=== PATIENT | male | born 1980 | race Two or more races ===

== ENCOUNTER 2019-11-05 06:25 | Emergency (ER) | payer OTHER ==
[~2019-11-05] VITALS: Ht 162.6 cm; Wt 81.8 kg
[2019-11-05 07:35] VITALS: BP 142/79
[2019-11-05] MEDS ORDERED: ALBU8HFA IH (11:45)
[2019-11-05] MEDS ORDERED: OMEP20 PO (11:45)
[2019-11-05] MEDS ORDERED: FLUT16H NASAL (11:45)
[2019-11-05] MEDS ORDERED: PRED10 PO (11:45)
[2019-11-05] MEDS ORDERED: MONT10TA21 PO (11:45)
[2019-11-05] MEDS ORDERED: BECL10.62 IH (11:45)
== END 2019-11-05 07:45 | disposition home or self-care (01) ==
LOC: EMS 06:25
DX: R05 Cough (principal); F17.210 Nicotine dependence, cigarettes, uncomplicated; Z20.828 Contact with and (suspected) exposure to other viral communicable diseases

== ENCOUNTER 2019-11-06 05:54 | Day surgery (SDC) | payer OTHER ==
[~2019-11-06] VITALS: Ht 162.6 cm; Wt 76.8 kg
[~2019-11-06 05:54] MED LIST: ALBU8HFA IH; BECL10.62 IH; FLUT16H NASAL; MONT10TA21 PO; OMEP20 PO; PRED10 PO; SODIUM CHLORIDE 0.9% 1,000 ML ONE
[2019-11-06] MEDS ORDERED: ALBUTEROL SULFATE 2.5 MG/0.5 ML NEB SOLUTION NEB ONE (05:55)
[2019-11-06] MEDS ORDERED: LIDOCAINE 2% 30 ML JELLY TP ONE (05:55)
[2019-11-06] MEDS ORDERED: BENZOCAINE 20% 50 MCG/SPRAY 57 GM TP ONE (05:55)
[2019-11-06] MEDS ORDERED: LIDOCAINE 4% 50 ML SOLUTION TP ONE (05:55)
[2019-11-06] MEDS ORDERED: SODIUM CHLORIDE 0.9% 1,000 ML IV ONE (06:30)
[2019-11-06] MEDS ORDERED: MIDAZOLAM HCL 2 MG/2 ML VIAL ONE (07:42)
[2019-11-06] MEDS ORDERED: FentaNYL CITRATE-PF 100 MCG/2 ML VIAL ONE (07:42)
[2019-11-06] MEDS ORDERED: MethylPREDNISolone SOD SUCC 125 MG/2 ML VIAL IVP ONE (08:45)
[2019-11-06] MEDS ORDERED: OXYGEN THERAPY IH SCH (20:00)
== END 2019-11-06 09:55 | disposition home or self-care (01) ==
LOC: SURGERY 05:54
PROVIDERS: ATTEND Internal Medicine Critical Care Medicine
DX: B37.0 Candidal stomatitis (principal); J38.4 Edema of larynx; F17.210 Nicotine dependence, cigarettes, uncomplicated; Z86.11 Personal history of tuberculosis
CPT/HCPCS: 31623; 31624; 71045; 87015; 87070; 87101; 87205; 87206; 87220; 88108; J2250; J2930; J3010; J7030